=== PATIENT | female | born 1995 | race African-American/Black ===

== ENCOUNTER 2021-09-13 22:53 | Emergency (ER) | payer OTHER, SELFPAY ==
[~2021-09-13] VITALS: Ht 175.3 cm; Wt 61.4 kg
[2021-09-13 22:54] VITALS: BP 130/69
== END 2021-09-14 02:09 | disposition home or self-care (01) ==
LOC: M ED 22:53
DX: S06.0X0A Concussion without loss of consciousness, initial encounter (principal); W22.8XXA Striking against or struck by other objects, initial encounter; Y99.1 Military activity; Z88.0 Allergy status to penicillin; Z88.1 Allergy status to other antibiotic agents